=== PATIENT | female | born 1960 | race Caucasian/White ===

== ENCOUNTER → 2019-06-02 | Outpatient (CLI) | payer OTHER | END | disposition home or self-care (01) | LOC: CFH 09:24 | PROVIDERS: ATTEND Nurse Practitioner | DX: M51.37 Other intervertebral disc degeneration, lumbosacral region (principal); M25.78 Osteophyte, vertebrae | CPT/HCPCS: 72110 ==

== ENCOUNTER 2019-10-24 22:02 | Inpatient (IN) | payer OTHER ==
[~2019-10-24] VITALS: Ht 162.6 cm; Wt 65.6 kg
--- NOTE | 2019-10-24 22:11 | NUR ---
Poision control suggests 4 hour peak salicylate post ingestion level and EKG for precursory "full work up". Benzo and etoh concern for losing airway. Metformin "not a problem typically." Will potentially see severe lactic acidosis, hypotension, and hypothermia. Use octreotide if cant control sugars. Suggests getting patient BS above 100 and stop the drip and start octreotide if "chasing" sugars. Can potentially see mental status changes in absence of hypoglycemia. Suggests using D5 iv drip and Po intake. to maintain sugar otherwise. States "unsure on how to monitor, approximately 8 hours to over night if she is symptomatic." Spoke to Roxy NEVES at [facility]. Case #[id number]. Addendum: 10/24/19 at 2237 by BRIANA Poision control suggests 4 hour peak salicylate post ingestion level and EKG for precursory "full work up". Benzo and etoh concern for losing airway. Metformin "not a problem typically." Will potentially see severe lactic acidosis, hypotension, and hypothermia. Use octreotide if cant control sugars. Suggests getting patient BS above 100 and stop the drip and start octreotide if "chasing" sugars. Can potentially see mental status changes in absence of hypoglycemia. Suggests using D5 iv drip and Po intake. to maintain sugar otherwise. States "unsure on how long to monitor, approximately 8 hours to over night if she is symptomatic." Spoke to Roxy NEVES at [facility]. Case #[id number].
[2019-10-24] MEDS ORDERED: KETOROLAC 30 MG/1 ML ONE (22:27)
[2019-10-24] MEDS ORDERED: THIAMINE 100MG TABLET ONE (22:27)
[2019-10-24] MEDS ORDERED: HYDROcodone/APAP 5/325 TABLET ONE (22:28)
[2019-10-24] MEDS ORDERED: SODIUM CHLORIDE 0.9% 1,000ML IVBOLUS ONE (22:30)
[2019-10-24] MEDS ORDERED: THIAMINE 100MG TABLET PO ONE (22:30)
[2019-10-24] MEDS ORDERED: KETOROLAC 30 MG/1 ML IVPush ONE (22:30)
[2019-10-24] MEDS ORDERED: HYDROcodone/APAP 5/325 TABLET PO ONE (22:30)
[2019-10-24] MEDS ORDERED: PLEASE ENTER ALLERGIES MC SCH (22:30)
[2019-10-24 22:54] LABS: MEAN CORPUSCULAR HGB CONC 33.8 g/dL (32.4-35.8); MEAN CORPUSCULAR VOLUME 91.8 fL (80-100); MEAN PLATELET VOLUME 8.1 fL (7.4-10.4); PLATELET COUNT 308 x10^3/uL (130-400); RED BLOOD COUNT 4.48 x10^6/uL (3.82-5.3); RED CELL DISTRIBUTION WIDTH 13.9 % (9.6-15.2)
[2019-10-24 22:59] LABS: ALANINE AMINOTRANSFERASE 20 U/L (12-78); ANION GAP 10 mmol/L (5-15); CALCIUM 9.1 mg/dL (8.5-10.1); CHLORIDE 106 mmol/L (98-107); CREATININE 0.81 mg/dL (0.55-1.02); SALICYLATE LEVEL 4.7 mg/dL (2.8-20.0)
[2019-10-24 23:02] LABS: ALKALINE PHOSPHATASE 78 U/L (45-117); BILIRUBIN,TOTAL 0.3 mg/dL (0.2-1.0); TOTAL PROTEIN 7.3 g/dL (6.4-8.2)
[2019-10-24 23:06] LABS: MD YES
[2019-10-24 23:44] LABS: MICROSCOPIC NOT IND
[2019-10-24 23:47] LABS: <RBC MORPHOLOGY> NORMAL; BAND#(MANUAL) 1.34 x10^3/uL; BANDS%(MANUAL) 7 % (0-7); BASOS#(MANUAL) 0.19 x10^3/uL (0-0.1); BASOS% (MANUAL) 1 % (0-1); LYMPHS% (MANUAL) 12 % (22-44); MONOS#(MANUAL) 0.96 x10^3/uL (0.3-2.7); MONOS% (MANUAL) 5 % (2-9); SEGS% (MANUAL) 75 % (42-75)
[2019-10-24 23:48] LABS: <PLATELET ESTIMATE> ADEQUATE; <PLT MORPHOLOGY> NORMAL PLT MORPH
[2019-10-24 23:55] LABS: AMPHETAMINE SCREEN, URINE Negative (Negative); BARBITURATE SCREEN, URINE Negative (Negative); BENZODIAZEPINE SCREEN, URINE Positive (Negative); CANNABINOID SCREEN, URINE Negative (Negative); COCAINE SCREEN, URINE Negative (Negative); METHADONE SCREEN, URINE Negative (Negative); OPIATE SCREEN, URINE Positive (Negative)
[2019-10-25] MEDS ORDERED: POTASSIUM CHLORIDE 40 MEQ in D5%-0.9% NACL 1,000 ML IV ONE (01:49)
[2019-10-25] MEDS ORDERED: OCTREOTIDE 100MCG/ML, 1ML (0.1MG/ML) IV ONE (02:00)
[2019-10-25] MEDS ORDERED: OCTREOTIDE 500 MCG in SODIUM CHLORIDE 0.9% 99 ML IV PRN (02:00)
[2019-10-25] MEDS ORDERED: OCTREOTIDE 100MCG/ML, 1ML (0.1MG/ML) ONE (02:04)
--- NOTE | 2019-10-25 02:54 | NUR ---
PT MEDICATED PER MAR, UPDATED ON POC. MONITORING IN PLACE, CALL LIGHT WITHIN REACH. PT PROVIDED SANDWICH, WATER AND APPLE JUICE.
[2019-10-25] MEDS ORDERED: DOCUSATE 100 MG CAPSULE PO PRN (03:00)
[2019-10-25] MEDS ORDERED: DIPHENHYDRAMINE 25 MG CAPSULE PO PRN (03:00)
[2019-10-25] MEDS ORDERED: GLUCAGON 1 MG IM PRN (03:00)
[2019-10-25] MEDS ORDERED: hydrALAzine 20 MG/ML, 1ML IVPush PRN (03:00)
[2019-10-25] MEDS ORDERED: DEXTROSE 50%, 50ML SYRINGE IVPush PRN (03:00)
[2019-10-25] MEDS ORDERED: LORazepam 2 MG/ML, 1ML IVPush PRN (03:00)
[2019-10-25] MEDS ORDERED: DEXTROSE 4 GM TAB.CHEW PO PRN (03:00)
[2019-10-25] MEDS ORDERED: ONDANSETRON 2MG/ML, 2ML IVPush PRN (03:00)
[2019-10-25] MEDS ORDERED: ACETAMINOPHEN 325 MG TABLET PO PRN (03:00)
[2019-10-25] MEDS ORDERED: CYCLOBENZAPRINE 10 MG TABLET PO PRN (03:00)
[2019-10-25] MEDS ORDERED: ENOXAPARIN 40 MG/0.4 ML ONE (03:17)
[2019-10-25] MEDS ORDERED: NICOTINE 14MG/24 HR PATCH.TD24 ONE (03:17)
[2019-10-25] MEDS: NICOTINE 14MG/24 HR PATCH.TD24 TD SCH ×2 (03:20→03:22)
[2019-10-25] MEDS: ENOXAPARIN 40 MG/0.4 ML SQ SCH (03:25)
--- NOTE | 2019-10-25 03:39 | NUR ---
PURA CAVAZOS WITH POISON CONTROL CALLED FOR UPDATE ON PT STATUS. NO NEW RECOMMENDATIONS AT THIS TIME. UPDATED CASE #[id number].
[2019-10-25] MEDS: D5%-0.45% NACL 1,000 ML IV SCH ×2 (03:58→13:32)
[2019-10-25] MEDS ORDERED: SODIUM CHLORIDE 0.9% 1,000ML IVBOLUS ONE (04:00)
[2019-10-25] MEDS ORDERED: AZITHROMYCIN 500 MG in SODIUM CHLORIDE 0.9% 250 ML IV ONE (04:00)
[2019-10-25] MEDS ORDERED: CEFTRIAXONE PMX 1GM/50ML 50 ML IVPB ONE (04:00)
[2019-10-25] MEDS ORDERED: CEFTRIAXONE PMX 1GM/50ML 50 ML ONE (04:06)
--- NOTE | 2019-10-25 04:30 | NUR ---
PT MEDICATED PER MAR, MONITORING IN PLACE, CALL LIGHT WITHIN REACH, ALL SAFETY MEASURES IN PLACE. PT SOMNOLENT, ROUSABLE TO VOICE. ROOM DIMMED FOR PT COMFORT. PT REPORTS HAVING NOT SLEPT WELL AT HOME, HAS BEEN SLEEPING INTERMITTENTLY SINCE ARRIVAL. DENIES NEEDS AT THIS TIME.
--- NOTE | 2019-10-25 05:52 | NUR ---
PT TO BE HELD IN ED UNTIL ROOM AVAILIABLE. HOSPITAL BED ORDERED AT THIS TIME.
--- NOTE | 2019-10-25 06:25 | NUR ---
TITRATED D5W TO 75ML/HR PER DR. LANG. PT TO NOW HAVE Q4HR BLOOD GLUCOSE CHECKS.
--- NOTE | 2019-10-25 06:56 | NUR ---
REPORT TO PURA SUE.
--- NOTE | 2019-10-25 07:06 | NUR ---
[facility] BEDSIDE HAND-OFF REPORT RECEIVED FROM RN LEAH. ASSUMING CARE OF PATIENT.
--- NOTE | 2019-10-25 07:07 | NUR ---
PT AMBULATED TO BR WITHOUT ASSISTANCE AND WAS STEADY ON FEET. RECONNECTED IVs. PT RESTING WITH NO COMPLAINTS. CALL LIGHT WITHIN REACH. PT REMAINS UNDER SUPERVISION OF SITTER AND REMAINS SAFE.
[2019-10-25] MEDS ORDERED: PANTOPRAZOLE 20MG TABLET ONE (07:39)
[2019-10-25] MEDS ORDERED: METF1000 PO (08:33)
[2019-10-25] MEDS ORDERED: GLIP2.5T16 PO (08:33)
[2019-10-25] MEDS ORDERED: LINA5TAB PO (08:34)
[2019-10-25] MEDS ORDERED: BUPR-173 PO (08:34)
[2019-10-25] MEDS ORDERED: ALPR0.5T7 PO (08:35)
[2019-10-25] MEDS ORDERED: LISI2.5T PO (08:35)
[2019-10-25] MEDS ORDERED: MELA5TAB14 PO (08:35)
[2019-10-25] MEDS ORDERED: GABA300C PO (08:36)
--- NOTE | 2019-10-25 08:46 | NUR ---
COMPLETED MED REC AND NOTIFIED DR. LANG THAT IT IS DONE.
[2019-10-25 08:54] VITALS: BP 131/85
[2019-10-25] MEDS: PANTOPRAZOLE 40MG TABLET PO SCH (10:34)
[2019-10-25 13:20] VITALS: BP 147/81
[2019-10-25] MEDS: KETOROLAC 30 MG/1 ML IV PRN (13:33)
[2019-10-25] MEDS ORDERED: OXYcodone/APAP 5/325MG TABLET PO PRN (14:00)
[2019-10-25 19:23] VITALS: BP 159/91
[2019-10-26 01:58] VITALS: BP 143/87
[2019-10-26] MEDS ORDERED: D5%-0.45% NACL 1,000 ML IV SCH (02:53)
[2019-10-26] MEDS: NICOTINE 14MG/24 HR PATCH.TD24 TD SCH (03:00)
[2019-10-26] MEDS: ENOXAPARIN 40 MG/0.4 ML SQ SCH (04:31)
[2019-10-26 05:05] LABS: BASOPHILS # (AUTO) 0.04 x10^3/uL (0-0.1); BASOPHILS % (AUTO) 0 % (0-1); EOSINOPHILS # (AUTO) 0.16 x10^3/uL (0-0.4); EOSINOPHILS % (AUTO) 1 % (1-7); LYMPHOCYTES # (AUTO) 3.06 x10^3/uL (1-3.4); LYMPHOCYTES % (AUTO) 24 % (22-44); MD NO; MEAN CORPUSCULAR HEMOGLOBIN 30.6 pg (27.0-34.8); MEAN CORPUSCULAR HGB CONC 33.1 g/dL (32.4-35.8); MEAN CORPUSCULAR VOLUME 92.6 fL (80-100); MEAN PLATELET VOLUME 8.2 fL (7.4-10.4); MONOCYTES # (AUTO) 0.51 x10^3/uL (0.2-0.8); MONOCYTES % (AUTO) 4 % (2-9); NEUTROPHILS # (AUTO) 9.01 x10^3/uL (1.8-6.8); NEUTROPHILS % (AUTO) 71 % (42-75); PLATELET COUNT 259 x10^3/uL (130-400); RED BLOOD COUNT 4.22 x10^6/uL (3.82-5.3); RED CELL DISTRIBUTION WIDTH 13.9 % (9.6-15.2)
[2019-10-26 05:08] LABS: ANION GAP 6 mmol/L (5-15); CALCIUM 8.6 mg/dL (8.5-10.1); CHLORIDE 106 mmol/L (98-107); CREATININE 0.66 mg/dL (0.55-1.02)
[2019-10-26 07:29] VITALS: BP 155/90
[2019-10-26] MEDS: PANTOPRAZOLE 40MG TABLET PO SCH (07:59)
[2019-10-26 12:51] VITALS: BP 146/78
[2019-10-26 19:24] VITALS: BP 157/85
[2019-10-26] MEDS: KETOROLAC 30 MG/1 ML IV PRN (21:15)
[2019-10-27 01:09] VITALS: BP 144/89
[2019-10-27] MEDS: NICOTINE 14MG/24 HR PATCH.TD24 TD SCH (03:00)
[2019-10-27] MEDS: ENOXAPARIN 40 MG/0.4 ML SQ SCH (05:57)
[2019-10-27 06:45] VITALS: BP 148/63
[2019-10-27 07:05] LABS: BASOPHILS # (AUTO) 0.04 x10^3/uL (0-0.1); BASOPHILS % (AUTO) 0 % (0-1); EOSINOPHILS % (AUTO) 2 % (1-7); LYMPHOCYTES # (AUTO) 3.43 x10^3/uL (1-3.4); LYMPHOCYTES % (AUTO) 38 % (22-44); MD NO; MEAN CORPUSCULAR HEMOGLOBIN 30.6 pg (27.0-34.8); MEAN CORPUSCULAR HGB CONC 32.9 g/dL (32.4-35.8); MONOCYTES # (AUTO) 0.56 x10^3/uL (0.2-0.8); MONOCYTES % (AUTO) 6 % (2-9); NEUTROPHILS # (AUTO) 4.84 x10^3/uL (1.8-6.8); NEUTROPHILS % (AUTO) 53 % (42-75); PLATELET COUNT 280 x10^3/uL (130-400); RED BLOOD COUNT 4.49 x10^6/uL (3.82-5.3); RED CELL DISTRIBUTION WIDTH 13.6 % (9.6-15.2)
[2019-10-27 07:14] LABS: ANION GAP 11 mmol/L (5-15); CALCIUM 9.1 mg/dL (8.5-10.1); CHLORIDE 104 mmol/L (98-107); CREATININE 0.71 mg/dL (0.55-1.02)
[2019-10-27] MEDS: PANTOPRAZOLE 40MG TABLET PO SCH (07:32)
[2019-10-27 13:58] VITALS: BP 158/85
[2019-10-27] MEDS: metFORMIN 500 MG TABLET PO SCH (16:55)
[2019-10-27 19:11] VITALS: BP 155/85
[2019-10-28 00:44] VITALS: BP 142/91
[2019-10-28] MEDS: KETOROLAC 30 MG/1 ML IV PRN (00:51)
[2019-10-28] MEDS: NICOTINE 14MG/24 HR PATCH.TD24 TD SCH (02:10)
[2019-10-28 05:04] LABS: BASOPHILS # (AUTO) 0.04 x10^3/uL (0-0.1); BASOPHILS % (AUTO) 0 % (0-1); EOSINOPHILS # (AUTO) 0.25 x10^3/uL (0-0.4); EOSINOPHILS % (AUTO) 2 % (1-7); LYMPHOCYTES # (AUTO) 4.19 x10^3/uL (1-3.4); LYMPHOCYTES % (AUTO) 39 % (22-44); MD NO; MEAN CORPUSCULAR HEMOGLOBIN 30.7 pg (27.0-34.8); MEAN CORPUSCULAR HGB CONC 32.9 g/dL (32.4-35.8); MEAN CORPUSCULAR VOLUME 93.3 fL (80-100); MEAN PLATELET VOLUME 7.7 fL (7.4-10.4); MONOCYTES # (AUTO) 0.85 x10^3/uL (0.2-0.8); MONOCYTES % (AUTO) 8 % (2-9); NEUTROPHILS # (AUTO) 5.53 x10^3/uL (1.8-6.8); NEUTROPHILS % (AUTO) 51 % (42-75); PLATELET COUNT 291 x10^3/uL (130-400); RED BLOOD COUNT 4.35 x10^6/uL (3.82-5.3); RED CELL DISTRIBUTION WIDTH 13.6 % (9.6-15.2)
[2019-10-28 05:17] LABS: ANION GAP 7 mmol/L (5-15); CALCIUM 8.7 mg/dL (8.5-10.1); CHLORIDE 103 mmol/L (98-107); CREATININE 0.86 mg/dL (0.55-1.02)
[2019-10-28] MEDS: ENOXAPARIN 40 MG/0.4 ML SQ SCH (06:03)
[2019-10-28 06:43] VITALS: BP 138/86
[2019-10-28] MEDS: PANTOPRAZOLE 40MG TABLET PO SCH (07:33)
[2019-10-28] MEDS: metFORMIN 500 MG TABLET PO SCH ×2 (07:33→16:55)
[2019-10-28] MEDS: GLIPizide ER 2.5 MG TABLET PO SCH ×2 (10:12→20:10)
[2019-10-28 14:16] VITALS: BP 135/84
[2019-10-28 20:15] VITALS: BP 146/77
[2019-10-29 00:15] VITALS: BP 130/71
[2019-10-29] MEDS: NICOTINE 14MG/24 HR PATCH.TD24 TD SCH (02:37)
[2019-10-29] MEDS: ENOXAPARIN 40 MG/0.4 ML SQ SCH (05:46)
[2019-10-29 06:56] VITALS: BP 128/77
[2019-10-29] MEDS: GLIPizide ER 2.5 MG TABLET PO SCH (07:56)
[2019-10-29] MEDS: PANTOPRAZOLE 40MG TABLET PO SCH (07:56)
[2019-10-29] MEDS: metFORMIN 500 MG TABLET PO SCH ×2 (07:56→17:00)
[2019-10-29 13:25] VITALS: BP 127/81
[2019-10-29] MEDS ORDERED: LINAGLIPTIN 5 MG TAB ONE (13:29)
[2019-10-29] MEDS ORDERED: LISINOPRIL 5 MG TABLET PO SCH (21:00)
[2019-10-29] MEDS ORDERED: LINAGLIPTIN 5 MG TAB PO SCH (21:00)
== END 2019-10-29 18:03 | disposition home or self-care (01) | DRG 917 ==
LOC: ED 10-25 03:03 → EDIP 10-25 03:13 → UNDOADMIN 10-25 03:13 → EDIP 10-25 06:23 → 3N 10-25 07:14
PROVIDERS: ADMIT Hospitalist; ATTEND Hospitalist
DX: T38.3X2A Poisoning by insulin and oral hypoglycemic [antidiabetic] drugs, intentional self-harm, initial encounter (principal); J15.9 Unspecified bacterial pneumonia; R65.10 Systemic inflammatory response syndrome (SIRS) of non-infectious origin without acute organ dysfunction; F33.2 Major depressive disorder, recurrent severe without psychotic features; E87.2 Acidosis; F41.8 Other specified anxiety disorders; E11.9 Type 2 diabetes mellitus without complications; G89.29 Other chronic pain; M54.9 Dorsalgia, unspecified; M19.90 Unspecified osteoarthritis, unspecified site; E11.42 Type 2 diabetes mellitus with diabetic polyneuropathy; M54.30 Sciatica, unspecified side; E11.649 Type 2 diabetes mellitus with hypoglycemia without coma; E78.5 Hyperlipidemia, unspecified; F17.210 Nicotine dependence, cigarettes, uncomplicated; D72.829 Elevated white blood cell count, unspecified; R00.0 Tachycardia, unspecified; Z79.899 Other long term (current) drug therapy; Z79.84 Long term (current) use of oral hypoglycemic drugs
CPT/HCPCS: 36415; 84145; 96365; 96375; 99291; J7042; 71045; 80048; 80053; 80307; 81003; 82962; 83036; 83605; 83735; 84100; 84443; 85025; 87040; 93005; G0378; J0456; J0696; J1650; J1885; J2354; J3480; J2060; J7030; J7050